=== PATIENT | male | born 1980 | race Caucasian/White ===

== ENCOUNTER → 2018-10-02 | Day surgery (SDC) | payer MEDICARE ==
[2018-09-28 12:00] LABS: BASOPHILS % 0.6 % (0.0-1.0); EOSINOPHILS % 0.8 % (0.0-6.0); HEMATOCRIT 47.1 % (38.2-49.6); HEMOGLOBIN 15.8 g/dL (14.0-18.0); LYMPHOCYTES # (AUTO) 1.3 (1.0-3.2); LYMPHOCYTES % 25.3 % (18.0-39.1); MEAN CORPUSCULAR HEMOGLOBIN 30.4 pg (28-32); MEAN CORPUSCULAR HGB CONC 33.5 g/dL (31-35); MEAN CORPUSCULAR VOLUME 90.6 fL (81-99); MONOCYTES # (AUTO) 0.5 (0.2-0.8); MONOCYTES % 9.7 % (4.4-11.3); NEUTROPHILS # (AUTO) 3.1 (2.1-6.9); NEUTROPHILS % 63.4 % (38.7-80.0); PLATELET COUNT 180 x10e3/uL (140-360); RED CELL DISTRIBUTION WIDTH 13.2 % (11.7-14.4)
[2018-09-28 12:21] LABS: ALANINE AMINOTRANSFERASE 28 IU/L (0-55); ALBUMIN 3.6 g/dL (3.5-5.0); ALBUMIN/GLOBULIN RATIO 1.3 (0.8-2.0); ALKALINE PHOSPHATASE 50 IU/L (40-150); ANION GAP 10.9 mmol/L (8-16); BLOOD UREA NITROGEN 7 mg/dL (7-26); BUN/CREATININE RATIO 8 (6-25); CALCIUM 9.2 mg/dL (8.4-10.2); CARBON DIOXIDE 27 mmol/L (22-29); CHLORIDE 105 mmol/L (98-107); CREATININE, SERUM 0.91 mg/dL (0.72-1.25); EST GLOMERULAR FILTRATION RATE > 60 ML/MIN (60-); GLUCOSE 92 mg/dL (74-118); POTASSIUM 3.9 mmol/L (3.5-5.1); SODIUM 139 mmol/L (136-145)
[~2018-10-02] MED LIST: ACETAMINOPHEN 1000 MG/100 ML IV ONE; BUPIVACAINE HCL 0.5% INJ 30 ML VIAL INJ ONE; CEFAZOLIN SOD 2 GM/D5W 50ML 50 ML IV ONE; DESFLURANE 240 ML BTL INH ONE; DIPHENHYDRAMINE HCL INJ 50 MG/ML VIAL ONE; FENTANYL CITRATE/PF 100MCG/2 ML INJ ONE; GLYCOPYRROLATE INJ 1MG/ 5 ML SYR ONE; HYDROCODONE/APAP 10MG-325MG TAB ONE; HYDROXYZINE HCL25 MG PO; KETOROLAC TROMETHAMINE 30 MG/ML VIAL ONE; LIDOCAINE HCL 2% JELLY 5 ML TUBE ONE; LIDOCAINE HCL 2% LOCAL INJ 5 ML SDV VIAL INJ ONE; METOCLOPRAMIDE HCL 10 MG/2ML VIAL ONE; MIDAZOLAM HCL 2 MG/2 ML VIAL ONE; NEOSTIGMINE 5 MG/5ML SYR ONE; ONDANSETRON HCL INJ 2MG/ML 2ML 2 MG/ML VIAL ONE; PROMETHAZINE HCL (IM) 25 MG/ML VIAL ONE; PROPOFOL IV EMULSION 10 MG/ML 20 ML VIAL ONE; ROCURONIUM BROMIDE 10 MG/ML 5ML VIAL ONE; SUGAMMADEX SODIUM 200 MG/2 ML VIAL IV ONE; linzess PO
[2018-10-02 10:30] VITALS: BP 121/89
--- NOTE | 2018-10-02 11:16 | Operative Report ---
DATE OF PROCEDURE: 10/02/2018 SURGEON: Dax Baltazar MD PREOPERATIVE DIAGNOSES: Chronic cholecystitis, cholelithiasis. POSTOPERATIVE DIAGNOSES: Chronic cholecystitis, cholelithiasis. PROCEDURE: Diagnostic laparoscopy, laparoscopic cholecystectomy. CRTT: None. ANESTHESIA: General endotracheal. INDICATIONS AND FINDINGS: The patient is a 37-year-old male, who presented with complaints of frequent episodes of epigastric abdominal pain. Workup revealed gallstones. At surgery, the patient was found to have a gallbladder that was mildly distended. There were adhesions involving the omentum over the neck and fundus of the gallbladder. Cystic duct was about 3 mm in diameter. Common bile duct was about 6 mm in diameter. Liver, stomach, and lower abdomen all appeared normal. TECHNIQUE: After adequate general endotracheal anesthesia with the patient in supine position, the abdomen was prepped and draped in a sterile fashion with ChloraPrep solution. Skin in the umbilicus was infiltrated with 0.5% Marcaine. Incision was made in the umbilicus, abdominal wall was elevated and Veress needle was introduced, pneumoperitoneum was then created. A 10 mm trocar and cannula was then passed through the umbilical wound. Laparoscopic camera was introduced. Initial laparoscopy revealed liver, stomach, and lower abdomen appeared normal, the gallbladder was mildly distended. A 10 mm trocar and cannula was placed in the epigastrium and two 5 mm trocars and cannulas were placed in right upper quadrant, these were placed under direct vision. Fundus of the gallbladder was grasped, retracted superiorly. There were adhesions over the neck and fundus of the gallbladder involving the omentum, these were lysed staying close to the gallbladder. Neck of the gallbladder was grasped, retracted laterally. Peritoneum over the neck of the gallbladder was incised. The gallbladder cystic duct junction was dissected free. Cystic artery was also dissected free. The neck of the gallbladder completely dissected free. Cystic artery was divided between hemoclips close to the gallbladder. Cystic duct was also divided between hemoclips with three clips being left on the common bile duct side. The gallbladder was dissected free from the liver using scissors and electrocautery. Once it was entirely free, it was placed into an Endopouch and brought out through the epigastric cannula containing multiple stones. Gallbladder bed was inspected for hemostasis, which was seen to be adequate. It was irrigated with saline, all fluid aspirated, inspected once again for hemostasis which was seen to be adequate. Instruments and cannulas were removed. Pneumoperitoneum was evacuated. Wounds were then closed. Fascia in the umbilical and epigastric wound closed with 0 Vicryl. Skin to all wounds closed with kamila. Sterile dressings applied to each wound. The patient tolerated the procedure well. Estimated blood loss was 10 mL. There were no complications. All counts were correct. The patient was taken to the recovery room in satisfactory condition. MD ADINA DuboisG/MODL /[id number] cc: Fahad Lopes MD
== END | disposition home or self-care (01) ==
LOC: OR 05:00
PROVIDERS: ATTEND Surgery
DX: K80.10 Calculus of gallbladder with chronic cholecystitis without obstruction (principal); K82.8 Other specified diseases of gallbladder; K21.9 Gastro-esophageal reflux disease without esophagitis; K58.9 Irritable bowel syndrome, unspecified; M26.609 Unspecified temporomandibular joint disorder, unspecified side; M53.80 Other specified dorsopathies, site unspecified; J45.909 Unspecified asthma, uncomplicated; F42.9 Obsessive-compulsive disorder, unspecified; F25.9 Schizoaffective disorder, unspecified; Z88.6 Allergy status to analgesic agent; Z88.8 Allergy status to other drugs, medicaments and biological substances; Z01.812 Encounter for preprocedural laboratory examination; Z68.30 Body mass index [BMI] 30.0-30.9, adult
CPT/HCPCS: 36415; 47562; 80053; 85025; 88304; J0131; J0690; J1200; J1885; J2001 ×2; J2250; J2405; J2550; J2704; J2765; J3490

== ENCOUNTER 2019-01-21 08:10 | Emergency (ER) | payer MEDICARE ==
[~2019-01-21] VITALS: Ht 172.7 cm; Wt 88.9 kg
[~2019-01-21 08:10] MED LIST changes: -ACETAMINOPHEN 1000 MG/100 ML IV ONE; -BUPIVACAINE HCL 0.5% INJ 30 ML VIAL INJ ONE; -CEFAZOLIN SOD 2 GM/D5W 50ML 50 ML IV ONE; -DESFLURANE 240 ML BTL INH ONE; -DIPHENHYDRAMINE HCL INJ 50 MG/ML VIAL ONE; -FENTANYL CITRATE/PF 100MCG/2 ML INJ ONE; -GLYCOPYRROLATE INJ 1MG/ 5 ML SYR ONE; -HYDROCODONE/APAP 10MG-325MG TAB ONE; -KETOROLAC TROMETHAMINE 30 MG/ML VIAL ONE; -LIDOCAINE HCL 2% JELLY 5 ML TUBE ONE; -LIDOCAINE HCL 2% LOCAL INJ 5 ML SDV VIAL INJ ONE; -METOCLOPRAMIDE HCL 10 MG/2ML VIAL ONE; -MIDAZOLAM HCL 2 MG/2 ML VIAL ONE; -NEOSTIGMINE 5 MG/5ML SYR ONE; -ONDANSETRON HCL INJ 2MG/ML 2ML 2 MG/ML VIAL ONE; -PROMETHAZINE HCL (IM) 25 MG/ML VIAL ONE; -PROPOFOL IV EMULSION 10 MG/ML 20 ML VIAL ONE; -ROCURONIUM BROMIDE 10 MG/ML 5ML VIAL ONE; -SUGAMMADEX SODIUM 200 MG/2 ML VIAL IV ONE
--- OUTSIDE RECORDS SUMMARY | 2019-01-21 08:13 | XMS REPORT ---
Author Author Jamie Flowers Organization [employer] Address Unknown Phone Unavailable Care Team Providers Care Powerhouse Mechanic Supervisor Name Role Phone Jamie Flowers CP Unavailable Allergies No Known Allergies Problems Problem Type Condition Code Onset Dates Condition Status Problem Back pain M54.9 Active Problem Rash R21 Active Problem Neck pain M54.2 Active Problem Joint pain M25.50 Active Medications No Known Medications Results No Known Results Summary Purpose [employer] Submission
--- OUTSIDE RECORDS SUMMARY | 2019-01-21 08:13 | XMS REPORT ---
Author Author Kathi Nina Organization [employer] Address Unknown Phone Unavailable Care Team Providers Care Nursing Instructor Name Role Phone Kathi Nina Unavailable Allergies, Adverse Reactions, Alerts Substance Reaction Event Type Cortisone Info Not Available Drug Allergy Morphine Sulfate Info Not Available Drug Allergy Dilaudid Info Not Available Drug Allergy Problems Problem Type Condition Code Onset Dates Condition Status Assessment Back pain M54.9 Active Problem Back pain M54.9 Active Problem Rash R21 Active Problem Neck pain M54.2 Active Assessment Joint pain M25.50 Active Assessment Neck pain M54.2 Active Problem Joint pain M25.50 Active Medications Medication Code System Code Instructions Start Date End Date Status Dosage Diclofenac Potassium [facility] 85846179809 50 MG Orally Twice a day Mar 27, 2018 Apr 26, 2018 Active 1 tablet HydrOXYzine HCl ND 12417062707 25 MG Orally every 8 hrs Active 1 tablet as needed Linzess ND 26002089451 145 MCG Orally Once a day Active 1 capsule Vital Signs Date/Time: Apr 30, 2018 BMI 28 Index Weight 193 lbs Height 69 in Temperature 96.9 F Cardiac Monitoring Heart Rate 72 /min Blood Pressure Diastolic 72 mm Hg Blood Pressure Systolic 110 mm Hg Results No Known Results Summary Purpose [employer] Submission
--- OUTSIDE RECORDS SUMMARY | 2019-01-21 08:13 | XMS REPORT ---
Author Author [facility] Address Unknown Phone Unavailable Care Team Providers Care Diploma Maker Name Role Phone ROSMERYLOUISE Unavailable Unavailable Daly ETIENNE Unavailable Unavailable Payers Payer Name Policy Type Policy Number Effective Date Expiration Date Problems This patient has no known problems. Allergies, Adverse Reactions, Alerts Allergy Name Allergy Type Status Severity Reaction(s) Onset Date Inactive Date Treating Clinician Comments morphine DA Active U 2018-12-23 00:00:00 codeine DA Active U 2018-12-23 00:00:00 hydromorphone DA Active U 2018-12-23 00:00:00 STEROIDS DA Active SV 2017-09-03 00:00:00 morphine DA Active U 2016-08-11 00:00:00 hydromorphone DA Active U 2016-08-11 00:00:00 morphine DA Active MO 2015-06-07 00:00:00 hydromorphone DA Active LA 2015-06-07 00:00:00 Medications This patient has no known medications. Results Test Description Test Time Test Comments Text Results Atomic Results Result Comments STREPTOCOCCUS PCR SCREEN 2019-01-20 11:29:00 STREPTOCOCCUS DYSGALACTIAE (test code=STREPGC) NEGATIVE FOR G/C NEGATIVE STREPA MOLECULAR (test code=STREPAMOL) NEGATIVE FOR GRP A NEGATIVE - XR CHEST 2 [id number] 23:10:00 FAX: Jacquelin Gallardo NP [place]: St: PRE Name: JAIDEN CARNES [facility] : [birth year] Age/S: 38/M [address] [facility] Unit #: [id number] Loc: [place] [address] Phys: Jacquelin Gallardo NP Acct: [id number] Dis Date: Status: PRE ER PHONE #: [phone] Exam Date: 01/19/2019 230 FAX #: [phone] Reason: cough, sob EXAMS: CPT CODE: [id number] XR CHEST 2 V 94832 HISTORY: cough, shortness of breath TECHNIQUE: PA and lateral chest x-ray COMPARISON: None FINDINGS: No airspace consolidation or pleural effusion. Normal heart size. Mediastinal silhouette is unremarkable. Visua lized osseous structures are grossly intact. IMPRESSION: No radiographic evidence of acute cardiopulmonary process. at 2310 Reported and signed by: Renay Palmer D.O. CC: Jacquelin Gallardo NP Technologist: RT NARDA(Jorge) Trnscrd Date/Time/By: 01/19/2019 ( 2310) : By: [email or web address] Orig Print D/T: S: 01/19/2019 (0093) PAGE 1 Signed Report BASIC METABOLIC [id number] 04:36:00* Test Item Value Reference Range Comments SODIUM (test code=NA) 142 mmol/L 136-145 POTASSIUM (test code=K) 4.0 mmol/L 3.5-5.1 CHLORIDE (test code=CL) 108.0 mmol/L 98-107 CARBON DIOXIDE (test code=CO2) 30.0 mmol/L 21-32 ANION GAP (test code=GAP) 8.0 10-20 GLUCOSE (test code=GLU) 134 mg/dL 74-106 BLOOD UREA NITROGEN (test code=BUN) 10 mg/dL 7-18 GLOMERULAR FILTRATION RATE (test code=GFR) > 60 mL/min >=60 Estimated GFR by using Modified MDRD formula.Chronic kidney disease is defined as either kidney damageor GFR <60 mL/min/1.73 m2 for >3 months. CREATININE (test code=CREAT) 1.00 mg/dL 0.7-1.3 BUN/CREATININE RATIO (test code=BUN/CREA) 10.0 10-20 CALCIUM (test code=CA) 9.2 mg/dL 8.5-10.1 HEPATIC FUNCTION [id number] 04:36:00* Test Item Value Reference Range Comments TOTAL PROTEIN (test code=PROT) 7.4 gram/dL 6.4-8.2 ALBUMIN (test code=ALB) 3.8 g/dL 3.4-5.0 GLOBULIN (test code=GLOB) 3.6 gram/dL 2.7-4.2 ALBUMIN/GLOBULIN RATIO (test code=A/G) 1.1 0.75-1.50 BILIRUBIN TOTAL (test code=BILT) 0.30 mg/dL 0.0-1.0 BILIRUBIN DIRECT (test code=BILD) 0.09 mg/dL 0.0-0.20 SGOT/AST (test code=AST) 10 IUnit/L 15-37 SGPT/ALT (test code=ALT) 22 IUnit/L 12-78 ALKALINE PHOSPHATASE TOTAL (test code=ALKP) 58 IUnit/L 45-117 Note change in reference range due to change in reagent. [id number] 04:36:00* Test Item Value Reference Range Comments ALCOHOL (test code=ALC) < 3 mg/dL 0.0-3.0 INTERPRETIVE DATA NOTE: POSITIVE SCREENING RESULTS SHOULD BE CONSIDERED PRESUMPTIVE.WHEN COLLECTED FOR MEDICAL PURPOSES ONLY. SPECIMEN WILL NOTBE COLLECTED BY CHAIN OF CUSTODY.IF A CONFIRMATION OF POSITIVE RESULTS IS DESIRED, ACONFIRMATION TEST MUST BE REQUESTED BY THE [facility]. [id number] 04:36:00* Test Item Value Reference Range Comments TROPONIN-I (test code=TROPI) <0.015 ng/mL 0-0.045 [id number] 04:36:00* Test Item Value Reference Range Comments ACETAMINOPHEN (test code=ACET) < 10 mcg/mL 10-30 A RANGE OF 10-30 mcg/mL IS A THERAPEUTIC RANGE. TOXIC CONCENTRATIONS: >150 mcg/mL AT 4 HOURS AFTER INGESTION >=50 mcg/mL AT 12 HOURS AFTER INGESTION [id number] 04:36:00* Test Item Value Reference Range Comments SALICYLATE (test code=NADIYA) < 1.7 mg/dL 2.8-20.0 BASIC METABOLIC [id number] 04:24:00* Test Item Value Reference Range Comments SODIUM (test code=NA) 142 mmol/L 136-145 POTASSIUM (test code=K) 4.0 mmol/L 3.5-5.1 CHLORIDE (test code=CL) 108.0 mmol/L 98-107 CARBON DIOXIDE (test code=CO2) mmol/L 21-32 ANION GAP (test code=GAP) 10-20 GLUCOSE (test code=GLU) mg/dL 74-106 BLOOD UREA NITROGEN (test code=BUN) mg/dL 7-18 GLOMERULAR FILTRATION RATE (test code=GFR) mL/min >=60 CREATININE (test code=CREAT) mg/dL 0.7-1.3 BUN/CREATININE RATIO (test code=BUN/CREA) 10-20 CALCIUM (test code=CA) mg/dL 8.5-10.1 HEPATIC FUNCTION [id number] 04:24:00* Test Item Value Reference Range Comments TOTAL PROTEIN (test code=PROT) gram/dL 6.4-8.2 ALBUMIN (test code=ALB) g/dL 3.4-5.0 GLOBULIN (test code=GLOB) gram/dL 2.7-4.2 ALBUMIN/GLOBULIN RATIO (test code=A/G) 0.75-1.50 BILIRUBIN TOTAL (test code=BILT) mg/dL 0.0-1.0 BILIRUBIN DIRECT (test code=BILD) mg/dL 0.0-0.20 SGOT/AST (test code=AST) IUnit/L 15-37 SGPT/ALT (test code=ALT) IUnit/L 12-78 ALKALINE PHOSPHATASE TOTAL (test code=ALKP) IUnit/L 45-117 [id number] 04:24:00* Test Item Value Reference Range Comments ALCOHOL (test code=ALC) mg/dL 0-3 URINALYSIS [id number] 04:14:00* Test Item Value Reference Range Comments UA COLOR (test code=COLU) YELLOW YELLOW UA APPEARANCE (test code=APPU) CLEAR CLEAR UA GLUCOSE DIPSTICK (test code=DGLUU) NEGATIVE mg/dL NEGATIVE UA BILIRUBIN DIPSTICK (test code=BILU) NEGATIVE mg/dL NEGATIVE UA KETONE DIPSTICK (test code=KETU) NEGATIVE mg/dL NEGATIVE UA SPECIFIC GRAVITY (test code=SGU) 1.027 1.001-1.035 UA BLOOD DIPSTICK (test code=ALYSSA) Negative mg/dL NEGATIVE UA PH DIPSTICK (test code=RIC) 7.0 5.0-8.0 UA PROTEIN DIPSTICK (test code=PROU) NEGATIVE mg/dL NEGATIVE UA UROBILINIOGEN DIPSTICK (test code=URO) 2.0 (1+) mg/dL NEGATIVE UA NITRITE DIPSTICK (test code=AKIRA) NEGATIVE NEGATIVE UA LEUKOCYTE ESTERASE W REFLEX (test code=LEUUR) NEGATIVE Sara/uL NEGATIVE UA WBC (test code=WBCU) 0-5 per HPF 0-5 UA RBC (test code=RBCU) 3-5 #/HPF 0-5 UA EPITHELIAL CELLS (test code=EPIU) FEW per HPF FEW UA BACTERIA (test code=BACU) FEW #/HPF NONE UA HYALINE CAST (test code=HYALU) 3-5 #/LPF 0-5 UA MUCUS (test code=MUCU) MODERATE #/LPF FEW Urine Source? Clean CatchDRUGS OF ABUSE SCREEN [id number] 04:14:00* Test Item Value Reference Range Comments URN COCAINE (test code=COCAURN) NEGATIVE <300 ng/mL URN CANNABINOIDS (test code=CANNABURN) NEGATIVE <50 ng/mL URN AMPHETAMINE (test code=AMPHETURN) NEGATIVE <1000 ng/mL URN BARBITURATE (test code=BARBITURN) NEGATIVE <200 ng/mL URN BENZODIAZEPINE (test code=BENZOURN) NEGATIVE <200 ng/mL URN OPIATES (test code=OPIATURN) NEGATIVE <300 ng/mL URN PHENCYCLIDINE (PCP) (test code=PHENCURN) NEGATIVE <25 ng/mL URN METHADONE (test code=METHAURN) NEGATIVE <300 ng/mL Urine Source? Clean CatchCBC W/O [id number] 04:08:00* Test Item Value Reference Range Comments WHITE BLOOD CELL (test code=WBC) 9.1 K/mm3 4.5-12.5 RED BLOOD CELL (test code=RBC) 4.79 mill/mm3 4.0-5.8 HEMOGLOBIN (test code=HGB) 15.3 gram/dL 13.0-17.5 HEMATOCRIT (test code=HCT) 42.7 % 42.0-52.0 MEAN CELL VOLUME (test code=MCV) 89.1 fL 80-98 MEAN CELL HGB (test code=MCH) 31.9 picogram 27.0-33.0 MEAN CELL HGB CONCETRATION (test code=MCHC) 35.8 gram/dL 33.0-36.0 RED CELL DISTRIBUTION WIDTH (test code=RDW) 13.4 % 11.6-16.2 PLATELET COUNT (test code=PLT) 203 K/mm3 150-450 MEAN PLATELET VOLUME (test code=MPV) 11.0 fL 6.7-11.0 CBC W/O [id number] 04:06:00* Test Item Value Reference Range Comments WHITE BLOOD CELL (test code=WBC) K/mm3 4.5-12.5 RED BLOOD CELL (test code=RBC) mill/mm3 4.0-5.8 HEMOGLOBIN (test code=HGB) 15.3 gram/dL 13.0-17.5 HEMATOCRIT (test code=HCT) 42.7 % 42.0-52.0 MEAN CELL VOLUME (test code=MCV) fL 80-98 MEAN CELL HGB (test code=MCH) picogram 27.0-33.0 MEAN CELL HGB CONCETRATION (test code=MCHC) gram/dL 33.0-36.0 RED CELL DISTRIBUTION WIDTH (test code=RDW) % 11.6-16.2 PLATELET COUNT (test code=PLT) K/mm3 150-450 MEAN PLATELET VOLUME (test code=MPV) fL 6.7-11.0 URINALYSIS [id number] 04:00:00* Test Item Value Reference Range Comments UA COLOR (test code=COLU) YELLOW YELLOW UA APPEARANCE (test code=APPU) CLEAR CLEAR UA GLUCOSE DIPSTICK (test code=DGLUU) NEGATIVE mg/dL NEGATIVE UA BILIRUBIN DIPSTICK (test code=BILU) NEGATIVE mg/dL NEGATIVE UA KETONE DIPSTICK (test code=KETU) NEGATIVE mg/dL NEGATIVE UA SPECIFIC GRAVITY (test code=SGU) 1.027 1.001-1.035 UA BLOOD DIPSTICK (test code=ALYSSA) Negative mg/dL NEGATIVE UA PH DIPSTICK (test code=RIC) 7.0 5.0-8.0 UA PROTEIN DIPSTICK (test code=PROU) NEGATIVE mg/dL NEGATIVE UA UROBILINIOGEN DIPSTICK (test code=URO) 2.0 (1+) mg/dL NEGATIVE UA NITRITE DIPSTICK (test code=AKIRA) NEGATIVE NEGATIVE UA LEUKOCYTE ESTERASE W REFLEX (test code=LEUUR) NEGATIVE Sara/uL NEGATIVE UA WBC (test code=WBCU) per HPF 0-5 UA RBC (test code=RBCU) per HPF 0-5 UA EPITHELIAL CELLS (test code=EPIU) per HPF Few UA BACTERIA (test code=BACU) per HPF NONE Urine Source? Clean CatchDRUGS OF ABUSE SCREEN [id number] 04:00:00* Test Item Value Reference Range Comments URN COCAINE (test code=COCAURN) <300 ng/mL URN CANNABINOIDS (test code=CANNABURN) <50 ng/mL URN AMPHETAMINE (test code=AMPHETURN) <1000 ng/mL URN BARBITURATE (test code=BARBITURN) <200 ng/mL URN BENZODIAZEPINE (test code=BENZOURN) <200 ng/mL URN OPIATES (test code=OPIATURN) <300 ng/mL URN PHENCYCLIDINE (PCP) (test code=PHENCURN) <25 ng/mL URN METHADONE (test code=METHAURN) <300 ng/mL Urine Source? Clean CatchURINALYSIS [id number] 04:00:00* Test Item Value Reference Range Comments UA COLOR (test code=COLU) YELLOW YELLOW UA APPEARANCE (test code=APPU) CLEAR CLEAR UA GLUCOSE DIPSTICK (test code=DGLUU) NEGATIVE mg/dL NEGATIVE UA BILIRUBIN DIPSTICK (test code=BILU) NEGATIVE mg/dL NEGATIVE UA KETONE DIPSTICK (test code=KETU) NEGATIVE mg/dL NEGATIVE UA SPECIFIC GRAVITY (test code=SGU) 1.027 1.001-1.035 UA BLOOD DIPSTICK (test code=ALYSSA) Negative mg/dL NEGATIVE UA PH DIPSTICK (test code=RIC) 7.0 5.0-8.0 UA PROTEIN DIPSTICK (test code=PROU) NEGATIVE mg/dL NEGATIVE UA UROBILINIOGEN DIPSTICK (test code=URO) 2.0 (1+) mg/dL NEGATIVE UA NITRITE DIPSTICK (test code=AKIAR) NEGATIVE NEGATIVE UA LEUKOCYTE ESTERASE W REFLEX (test code=LEUUR) NEGATIVE Sara/uL NEGATIVE UA WBC (test code=WBCU) 0-5 per HPF 0-5 UA RBC (test code=RBCU) 3-5 #/HPF 0-5 UA EPITHELIAL CELLS (test code=EPIU) FEW per HPF FEW UA BACTERIA (test code=BACU) FEW #/HPF NONE UA HYALINE CAST (test code=HYALU) 3-5 #/LPF 0-5 UA MUCUS (test code=MUCU) MODERATE #/LPF FEW Urine Source? Clean CatchDRUGS OF ABUSE SCREEN [id number] 04:00:00* Test Item Value Reference Range Comments URN COCAINE (test code=COCAURN) <300 ng/mL URN CANNABINOIDS (test code=CANNABURN) <50 ng/mL URN AMPHETAMINE (test code=AMPHETURN) <1000 ng/mL URN BARBITURATE (test code=BARBITURN) <200 ng/mL URN BENZODIAZEPINE (test code=BENZOURN) <200 ng/mL URN OPIATES (test code=OPIATURN) <300 ng/mL URN PHENCYCLIDINE (PCP) (test code=PHENCURN) <25 ng/mL URN METHADONE (test code=METHAURN) <300 ng/mL Urine Source? Clean Catch- CT HEAD/BRAIN W/O [id number] 03:44:00 Name: JAIDEN PERLA [facility] : 1980 Age/S: 38 / M [address] Unit #: [id number] Loc: [place] [address] Phys: Venkatesh Ewing MD Acct: [id number] [place] s Date: Status: REG ER PHONE #: Exam Date: 01/12/2019 0339 FAX #: Reason: confusion EXAMS: CPT CODE: [id number] CT HEAD/BRAIN W/O CONT 50024 EXAM: - CT HEAD/BRAIN W/O CONT HISTORY: Confusion. TECHNIQUE: Axial tomograms through the brain were obtained without intravenous contrast. This exam was performed according to our departmental dose-optimization progra m, which includes automated exposure control, adjustment of the mA and/or kV according to patient size and/or use of iterative reconstruction techni que. COMPARISON: None available time of interpretation. FINDINGS: There is no intracranial hemorrhage, mass, or mass e ffect. The ventricular system and sulci are age-appropriate. There is no e vidence of acute infarction. The osseous structures and orbi ts, show no significant abnormalities. The visualized sinuses are relativ claudia clear. The soft tissues are unremarkable. IMPRESSION: No acute intracranial abnormality with no evidence of intracr anial hemorrhage. at 0344 Reported and signed by: Edil Tripathi MD CC: Yakov Ewing MD Technologist:MYRNA BERNARD, RT; Wyatt Keating CTDI: DLP: T rnscb Date/Time: 01/12/2019 (034) [email or web address] Orig Print D /T: S: 01/12/2019 (0343) PAGE 1 Signed Report - XR HAND 3 + V [id number] 14:38:00 FAX: Donn Valero DO [place]: B St: REG FAX: Javed Chan NP [phone] Name: JAIDEN PERLA JR [facility] : 1980 Age/S: 38/M [address] Unit #: [id number] Loc: [place] [address] Phys: Javed Chan CLOTH STRETCHER Acct: [id number] Dis Date: Status: REG ER PHONE #: [phone] Exam Date: 12/23/2018 1430 FAX #: [phone] Reason: HAND PAIN EXAMS: CPT CODE: [id number] XR HAND 3 + [place] [address] CLINICAL HISTORY: HAND PAIN TECHNIQUE: AP, oblique, and lateral views of the right hand COMPARISON: None FINDINGS: No acute fracture or dislocation. Bony trabecular pat tern is unremarkable. No cortical destruction or periosteal reaction. Join t spaces are preserved. Regional soft tissues are unremarkable. IMPRESSION: 1. Negative examination of the right hand. at 1438 Reported and signed by: Renay Palmer D.O. CC: Donn Valero DO; Javed Chan NP Technologist: KARLA HARRIS RT(R) Trnscrd Date/Time/By: 04/2018 (1438) : By: [email or web address] Orig Print D/T: S: 12/23/2018 (0297) PAGE 1 Signed Report - CT ABD PELVIS [id number] 00:43:00 Name: JAIDEN PERLA JR [facility] : 1980 Age/S: 37 / M [address] Unit #: [id number] Loc: [place] [address] Phys: Stacey Kennedy CLOTH STRETCHER Acct: [id number] Dis Date: Status: REG ER PHONE #: [phone] Exam Date: 10/16/2018 0022 FAX #: [phone] Reason: CODE SEPSIS EXAMS: CPT CODE: [id number] CT ABD PELVIS W/CONT 68492 EXAM: - CT ABD PELVIS W/CONT HISTORY: Abdominal pain. Vomiting. TECHNIQUE: Axial tomograms through the abdomen and pelvis were obtained after intravenous contrast. Coronal and sagittal reformatted images are provided. This exam was performed according to our departmental dose-optimization program, which includes automated exposure control, adjustment of the mA and/or kV according to patient size and/or use of iterative reconstruction technique. COMPARISON: July 10, 2018. FINDINGS: The visualized lung bases are clear. Status post cholec ystectomy. The liver, spleen, pancreas, adrenal glands and kidneys demonstrate no significant abnormalities. The appendix has a normal appearance. The bowel is unremarkable. There is no adeno cassandra or free fluid. There is no acute osseous abnormality. There is no significant change compared to prior exam. I MPRESSION: No significant abnormalities demonstrated. at 0043 Reported and signed by: Edil Tripathi MD CC: Stacey Kennedy NP Technologist:RT RODRIGUEZ CTDI: DLP: Trnscb Date/Time: 10/16/2018 (0043) [email or web address] Orig Print D/T: S: 10/16/2018 (0046) PAGE 1 Signed Report POC LACTIC [id number] 00:42:00* Test Item Value Reference Range Comments POC LACTIC ACID (test code=POCLAC) 1.06 MMOL/L 0.4-2.2 URINALYSIS [id number] 00:05:00* Test Item Value Reference Range Comments UA COLOR (test code=COLU) Light-Yellow YELLOW UA APPEARANCE (test code=APPU) CLEAR CLEAR UA GLUCOSE DIPSTICK (test code=DGLUU) NEGATIVE mg/dL NEGATIVE UA BILIRUBIN DIPSTICK (test code=BILU) NEGATIVE mg/dL NEGATIVE UA KETONE DIPSTICK (test code=KETU) NEGATIVE mg/dL NEGATIVE UA SPECIFIC GRAVITY (test code=SGU) 1.016 1.001-1.035 UA BLOOD DIPSTICK (test code=ALYSSA) Negative mg/dL NEGATIVE UA PH DIPSTICK (test code=RIC) 8.0 5.0-8.0 UA PROTEIN DIPSTICK (test code=PROU) NEGATIVE mg/dL NEGATIVE UA UROBILINIOGEN DIPSTICK (test code=URO) Normal mg/dL NEGATIVE UA NITRITE DIPSTICK (test code=AKIRA) NEGATIVE NEGATIVE UA LEUKOCYTE ESTERASE W REFLEX (test code=LEUUR) NEGATIVE Sara/uL NEGATIVE UA WBC (test code=WBCU) 0-5 per HPF 0-5 UA RBC (test code=RBCU) 0-2 #/HPF 0-5 UA EPITHELIAL CELLS (test code=EPIU) FEW per HPF FEW UA BACTERIA (test code=BACU) NONE SEEN #/HPF NONE UA MUCUS (test code=MUCU) FEW #/LPF FEW Urine Source? Clean CatchURINALYSIS [id number] 00:04:00* Test Item Value Reference Range Comments UA COLOR (test code=COLU) Light-Yellow YELLOW UA APPEARANCE (test code=APPU) CLEAR CLEAR UA GLUCOSE DIPSTICK (test code=DGLUU) NEGATIVE mg/dL NEGATIVE UA BILIRUBIN DIPSTICK (test code=BILU) NEGATIVE mg/dL NEGATIVE UA KETONE DIPSTICK (test code=KETU) NEGATIVE mg/dL NEGATIVE UA SPECIFIC GRAVITY (test code=SGU) 1.016 1.001-1.035 UA BLOOD DIPSTICK (test code=ALYSSA) Negative mg/dL NEGATIVE UA PH DIPSTICK (test code=RIC) 8.0 5.0-8.0 UA PROTEIN DIPSTICK (test code=PROU) NEGATIVE mg/dL NEGATIVE UA UROBILINIOGEN DIPSTICK (test code=URO) Normal mg/dL NEGATIVE UA NITRITE DIPSTICK (test code=AKIRA) NEGATIVE NEGATIVE UA LEUKOCYTE ESTERASE W REFLEX (test code=LEUUR) NEGATIVE Sara/uL NEGATIVE UA WBC (test code=WBCU) per HPF 0-5 UA RBC (test code=RBCU) per HPF 0-5 UA EPITHELIAL CELLS (test code=EPIU) per HPF Few UA BACTERIA (test code=BACU) per HPF NONE Urine Source? Clean CatchPROCALCITONIN (PCT)2018-10-15 21:58:00* Test Item Value Reference Range Comments PROCALCITONIN (PCT) (test code=PROCAL) < 0.05 ng/ml Concentration Interpretation (ng/mL) <0.51 Sepsis is not likely. Local bacterial infection is possible. (LOW RISK for progression to Sepsis) 0.51 - 2.00 Sepsis is possible, but other conditions are known to elevate PCT as well. (MODERATE RISK for progression to Sepsis) > 2.00 Sepsis is likely, unless other causes are known. (HIGH RISK for progression to Severe Sepsis or Septic Shock) 10.00 High likelihood of Severe Sepsis or Septic or higher Shock. *Increased PCT levels may not always be related to systemic bacterial infection.*Low PCT levels do not automatically exclude the presence of bacterial infection.*All results should be interpreted taking into account the patients history. LACTIC [id number] 21:36:00* Test Item Value Reference Range Comments LACTIC ACID (test code=LACT) 1.1 mmol/L 0.4-1.9 BASIC METABOLIC [id number] 21:18:00* Test Item Value Reference Range Comments SODIUM (test code=NA) 143 mmol/L 136-145 POTASSIUM (test code=K) 3.8 mmol/L 3.5-5.1 CHLORIDE (test code=CL) 110.0 mmol/L 98-107 CARBON DIOXIDE (test code=CO2) 29.0 mmol/L 21-32 ANION GAP (test code=GAP) 7.8 10-20 GLUCOSE (test code=GLU) 86 mg/dL 74-106 BLOOD UREA NITROGEN (test code=BUN) 7 mg/dL 7-18 GLOMERULAR FILTRATION RATE (test code=GFR) > 60 mL/min >=60 Estimated GFR by using Modified MDRD formula.Chronic kidney disease is defined as either kidney damageor GFR <60 mL/min/1.73 m2 for >3 months. CREATININE (test code=CREAT) 1.00 mg/dL 0.7-1.3 BUN/CREATININE RATIO (test code=BUN/CREA) 7.0 10-20 CALCIUM (test code=CA) 8.6 mg/dL 8.5-10.1 HEPATIC FUNCTION [id number] 21:18:00* Test Item Value Reference Range Comments TOTAL PROTEIN (test code=PROT) 6.2 gram/dL 6.4-8.2 ALBUMIN (test code=ALB) 3.3 g/dL 3.4-5.0 GLOBULIN (test code=GLOB) 2.9 gram/dL 2.7-4.2 ALBUMIN/GLOBULIN RATIO (test code=A/G) 1.1 0.75-1.50 BILIRUBIN TOTAL (test code=BILT) 0.30 mg/dL 0.0-1.0 BILIRUBIN DIRECT (test code=BILD) 0.12 mg/dL 0.0-0.20 SGOT/AST (test code=AST) 15 IUnit/L 15-37 SGPT/ALT (test code=ALT) 22 IUnit/L 12-78 ALKALINE PHOSPHATASE TOTAL (test code=ALKP) 60 IUnit/L 45-117 Note change in reference range due to change in reagent. [id number] 21:18:00* Test Item Value Reference Range Comments TROPONIN-I (test code=TROPI) <0.015 ng/mL 0-0.045 - XR CHEST 1 [id number] 21:03:00 FAX: Stacey Kennedy NP [place]: B St: PRE Name: JAIDEN CARNES [facility] : [birth year] Age/S: 37/M [address] [facility] Unit #: [id number] Loc: [place] [address] Phys: Stacey Kennedy NP Acct: [id number] Dis Date: Status: PRE ER PHONE #: [phone] Exam Date: 10/15/2018 2100 FAX #: [phone] Reason: CODE SEPSIS EXAMS: CPT CODE: [id number] XR CHEST 1 V [id number] REASON FOR EXAM: CODE SEPSIS EXAM ORDER DATE: 10/15/2018 8:13 PM Ordering Batsheva: Stacey Kennedy NP PROCEDURE: - XR CHEST 1 V COMPARI SON: FINDINGS: Portable AP frontal view of the chest obtained at 8:58 PM shows clear lungs without evidence of consolidation. There is no evidence of effusion. The heart size is within normal limits. Pulmona ry vasculatures are unremarkable. IMPRESSION: No active disease . at 3 Reported and signed by: Jaya Szymanski M.D. CC: Stacey Kennedy NP Technologist: CLAUDINE WHEELERZ Trnscrd Date/Time/By: 10/15/2018 (2102) : By: HiteshVTL Orig Print D/T: S: 10/15/2018 (2105) PAGE 1 Signed Report BASIC METABOLIC [id number] 20:56:00* Test Item Value Reference Range Comments SODIUM (test code=NA) 143 mmol/L 136-145 POTASSIUM (test code=K) 3.8 mmol/L 3.5-5.1 CHLORIDE (test code=CL) 110.0 mmol/L 98-107 CARBON DIOXIDE (test code=CO2) mmol/L 21-32 ANION GAP (test code=GAP) 10-20 GLUCOSE (test code=GLU) mg/dL 74-106 BLOOD UREA NITROGEN (test code=BUN) mg/dL 7-18 GLOMERULAR FILTRATION RATE (test code=GFR) mL/min >=60 CREATININE (test code=CREAT) mg/dL 0.7-1.3 BUN/CREATININE RATIO (test code=BUN/CREA) 10-20 CALCIUM (test code=CA) mg/dL 8.5-10.1 HEPATIC FUNCTION [id number] 20:56:00* Test Item Value Reference Range Comments TOTAL PROTEIN (test code=PROT) gram/dL 6.4-8.2 ALBUMIN (test code=ALB) g/dL 3.4-5.0 GLOBULIN (test code=GLOB) gram/dL 2.7-4.2 ALBUMIN/GLOBULIN RATIO (test code=A/G) 0.75-1.50 BILIRUBIN TOTAL (test code=BILT) mg/dL 0.0-1.0 BILIRUBIN DIRECT (test code=BILD) mg/dL 0.0-0.20 SGOT/AST (test code=AST) IUnit/L 15-37 SGPT/ALT (test code=ALT) IUnit/L 12-78 ALKALINE PHOSPHATASE TOTAL (test code=ALKP) IUnit/L 45-117 [id number] 20:56:00* Test Item Value Reference Range Comments TROPONIN-I (test code=TROPI) ng/mL 0-0.045 CBC W/AUTO [id number] 20:51:00* Test Item Value Reference Range Comments WHITE BLOOD CELL (test code=WBC) 6.2 K/mm3 4.5-12.5 RED BLOOD CELL (test code=RBC) 5.23 mill/mm3 4.0-5.8 HEMOGLOBIN (test code=HGB) 16.0 gram/dL 13.0-17.5 HEMATOCRIT (test code=HCT) 46.0 % 42.0-52.0 MEAN CELL VOLUME (test code=MCV) 88.0 fL 80-98 MEAN CELL HGB (test code=MCH) 30.6 picogram 27.0-33.0 MEAN CELL HGB CONCETRATION (test code=MCHC) 34.8 gram/dL 33.0-36.0 RED CELL DISTRIBUTION WIDTH (test code=RDW) 12.6 % 11.6-16.2 RED CELL DISTRIBUTION WIDTH SD (test code=RDW-SD) 40.6 fL 37.0-51.0 PLATELET COUNT (test code=PLT) 184 K/mm3 150-450 MEAN PLATELET VOLUME (test code=MPV) 10.1 fL 6.7-11.0 NEUTROPHIL % (test code=NT%) 59.1 % 39.0-69.0 IMMATURE GRANULOCYTE % (test code=IG%) 0.2 % 0.0-5.0 LYMPHOCYTE % (test code=LY%) 29.9 % 25.0-55.0 MONOCYTE % (test code=MO%) 9.6 % 0.0-10.0 EOSINOPHIL % (test code=EO%) 0.6 % 0.0-5.0 BASOPHIL % (test code=BA%) 0.6 % 0.0-1.0 NUCLEATED RBC % (test code=NRBC%) 0.0 % 0-0 NEUTROPHIL # (test code=NT#) 3.67 K/mm3 1.8-7.7 IMMATURE GRANULOCYTE # (test code=IG#) 0.01 x10 3/uL 0-0.03 LYMPHOCYTE # (test code=LY#) 1.86 K/mm3 1.0-5.0 MONOCYTE # (test code=MO#) 0.60 K/mm3 0-0.8 EOSINOPHIL # (test code=EO#) 0.04 K/mm3 0.0-0.5 BASOPHIL # (test code=BA#) 0.04 K/mm3 0.0-0.2 NUCLEATED RBC # (test code=NRBC#) 0.00 K/mm3 0.0-0.1 MANUAL DIFF REQUIRED (test code=MDIFF) NO CBC W/AUTO [id number] 20:47:00* Test Item Value Reference Range Comments WHITE BLOOD CELL (test code=WBC) K/mm3 4.5-12.5 RED BLOOD CELL (test code=RBC) mill/mm3 4.0-5.8 HEMOGLOBIN (test code=HGB) 16.0 gram/dL 13.0-17.5 HEMATOCRIT (test code=HCT) 46.0 % 42.0-52.0 MEAN CELL VOLUME (test code=MCV) fL 80-98 MEAN CELL HGB (test code=MCH) picogram 27.0-33.0 MEAN CELL HGB CONCETRATION (test code=MCHC) gram/dL 33.0-36.0 RED CELL DISTRIBUTION WIDTH (test code=RDW) % 11.6-16.2 RED CELL DISTRIBUTION WIDTH SD (test code=RDW-SD) fL 37.0-51.0 PLATELET COUNT (test code=PLT) K/mm3 150-450 MEAN PLATELET VOLUME (test code=MPV) fL 6.7-11.0 NEUTROPHIL % (test code=NT%) % 39.0-69.0 IMMATURE GRANULOCYTE % (test code=IG%) % 0.0-5.0 LYMPHOCYTE % (test code=LY%) % 25.0-55.0 MONOCYTE % (test code=MO%) % 0.0-10.0 EOSINOPHIL % (test code=EO%) % 0.0-5.0 BASOPHIL % (test code=BA%) % 0.0-1.0 NEUTROPHIL # (test code=NT#) K/mm3 1.8-7.7 LYMPHOCYTE # (test code=LY#) K/mm3 1.0-5.0 MONOCYTE # (test code=MO#) K/mm3 0-0.8 EOSINOPHIL # (test code=EO#) K/mm3 0.0-0.5 BASOPHIL # (test code=BA#) K/mm3 0.0-0.2 - CT ABD PELVIS [id number] 03:35:00 Name: JAIDEN PERLA [facility] : 1980 Age/S: 37 / M [address] Unit #: [id number] Loc: [place] [address] Phys: Jillian Smith DO Acct: [id number] Dis Date: Status: REG ER PHONE #: [phone] Exam Date: 07/10/2018309 FAX #: [phone] Reason: abdominal pain, r/o pancreatitis EXAMS: CPT CODE: [id number] CT ABD PELVIS W/CONT 24313 EXAM: - CT ABD PELVIS W/CONT HISTORY: Abdominal pain. TECHNIQUE: Axial tomograms through the abdomen and pelvis were obtained after intravenous contrast. Coronal and sagittal reformatted images are provided. This exam was performed according to our departmental dose-optimization program, which includes automated exposure control, adjustment of the mA and/or kV according to patient size and/or use of iterative reconstruction technique. COMPARISON: June 18, 2015. FINDINGS: The visualized lung bases are clear. No pleural effusion. The liver, spleen, pancreas, adrenal glands and kidneys demonstrate no significant abnormalities. The appendix has a normal appearance. The bowel is unremarkable. There is no adenopathy or free fluid. There is no acute osseous abnormality. IMPRESSION: No significant abnormalities demonstrated. at 0335 Reported and signed by: Edil Tripathi MD CC: Jillian Smith DO Technologist:FREDDY MAGALLON CTDI: DLP: Trnscb Date/Time: 07/10/2018 (334) [email or web address] Orig Print D/T: S: 07/10/2018 (0338) CTDI: DLP: PAGE 1 Signed Report BASIC METABOLIC [id number] 02:33:00* Test Item Value Reference Range Comments SODIUM (test code=NA) 141 mmol/L 136-145 POTASSIUM (test code=K) 3.7 mmol/L 3.5-5.1 CHLORIDE (test code=CL) 107.0 mmol/L 98-107 CARBON DIOXIDE (test code=CO2) 30.0 mmol/L 21-32 ANION GAP (test code=GAP) 7.7 10-20 GLUCOSE (test code=GLU) 88 mg/dL 74-106 BLOOD UREA NITROGEN (test code=BUN) 9 mg/dL 7-18 GLOMERULAR FILTRATION RATE (test code=GFR) > 60 mL/min >=60 Estimated GFR by using Modified MDRD formula.Chronic kidney disease is defined as either kidney damageor GFR <60 mL/min/1.73 m2 for >3 months. CREATININE (test code=CREAT) 1.00 mg/dL 0.7-1.3 BUN/CREATININE RATIO (test code=BUN/CREA) 9.2 10-20 CALCIUM (test code=CA) 9.0 mg/dL 8.5-10.1 HEPATIC FUNCTION [id number] 02:33:00* Test Item Value Reference Range Comments TOTAL PROTEIN (test code=PROT) 7.7 gram/dL 6.4-8.2 ALBUMIN (test code=ALB) 4.1 g/dL 3.4-5.0 GLOBULIN (test code=GLOB) 3.6 gram/dL 2.7-4.2 ALBUMIN/GLOBULIN RATIO (test code=A/G) 1.1 0.75-1.50 BILIRUBIN TOTAL (test code=BILT) 0.40 mg/dL 0.0-1.0 BILIRUBIN DIRECT (test code=BILD) 0.12 mg/dL 0.0-0.20 SGOT/AST (test code=AST) 23 IUnit/L 15-37 SGPT/ALT (test code=ALT) 37 IUnit/L 12-78 ALKALINE PHOSPHATASE TOTAL (test code=ALKP) 73 IUnit/L 45-117 Note change in reference range due to change in reagent. [id number] 02:33:00* Test Item Value Reference Range Comments LIPASE (test code=LIP) 103 U/L 73.0-393.0 BASIC METABOLIC [id number] 02:15:00* Test Item Value Reference Range Comments SODIUM (test code=NA) 141 mmol/L 136-145 POTASSIUM (test code=K) 3.7 mmol/L 3.5-5.1 CHLORIDE (test code=CL) 107.0 mmol/L 98-107 CARBON DIOXIDE (test code=CO2) mmol/L 21-32 ANION GAP (test code=GAP) 10-20 GLUCOSE (test code=GLU) mg/dL 74-106 BLOOD UREA NITROGEN (test code=BUN) mg/dL 7-18 GLOMERULAR FILTRATION RATE (test code=GFR) mL/min >=60 CREATININE (test code=CREAT) mg/dL 0.7-1.3 BUN/CREATININE RATIO (test code=BUN/CREA) 10-20 CALCIUM (test code=CA) mg/dL 8.5-10.1 HEPATIC FUNCTION [id number] 02:15:00* Test Item Value Reference Range Comments TOTAL PROTEIN (test code=PROT) gram/dL 6.4-8.2 ALBUMIN (test code=ALB) g/dL 3.4-5.0 GLOBULIN (test code=GLOB) gram/dL 2.7-4.2 ALBUMIN/GLOBULIN RATIO (test code=A/G) 0.75-1.50 BILIRUBIN TOTAL (test code=BILT) mg/dL 0.0-1.0 BILIRUBIN DIRECT (test code=BILD) mg/dL 0.0-0.20 SGOT/AST (test code=AST) IUnit/L 15-37 SGPT/ALT (test code=ALT) IUnit/L 12-78 ALKALINE PHOSPHATASE TOTAL (test code=ALKP) IUnit/L 45-117 [id number] 02:15:00* Test Item Value Reference Range Comments LIPASE (test code=LIP) U/L 73.0-393.0 URINALYSIS [id number] 01:51:00* Test Item Value Reference Range Comments UA COLOR (test code=COLU) LIGHT YELLOW YELLOW UA APPEARANCE (test code=APPU) CLEAR CLEAR UA GLUCOSE DIPSTICK (test code=DGLUU) NEGATIVE mg/dL NEGATIVE UA BILIRUBIN DIPSTICK (test code=BILU) NEGATIVE mg/dL NEGATIVE UA KETONE DIPSTICK (test code=KETU) Negative mg/dL NEGATIVE UA SPECIFIC GRAVITY (test code=SGU) 1.014 1.001-1.035 UA BLOOD DIPSTICK (test code=ALYSSA) Negative NEGATIVE UA PH DIPSTICK (test code=RIC) 6.0 5.0-8.0 UA PROTEIN DIPSTICK (test code=PROU) Negative mg/dL NEGATIVE UA UROBILINIOGEN DIPSTICK (test code=URO) 2.0 (1+) mg/dL NEGATIVE UA NITRITE DIPSTICK (test code=AKIRA) NEGATIVE NEGATIVE UA LEUKOCYTE ESTERASE W REFLEX (test code=LEUUR) NEGATIVE NEGATIVE UA WBC (test code=WBCU) 0-5 #/HPF 0-5 UA EPITHELIAL CELLS (test code=EPIU) FEW per HPF FEW UA MUCUS (test code=MUCU) FEW #/LPF FEW Urine Source? Clean CatchCBC W/O [id number] 01:46:00* Test Item Value Reference Range Comments WHITE BLOOD CELL (test code=WBC) 6.2 K/mm3 4.5-12.5 RED BLOOD CELL (test code=RBC) 4.81 mill/mm3 4.0-5.8 HEMOGLOBIN (test code=HGB) 14.7 gram/dL 13.0-17.5 HEMATOCRIT (test code=HCT) 43.3 % 42.0-52.0 MEAN CELL VOLUME (test code=MCV) 90.0 fL 80-98 MEAN CELL HGB (test code=MCH) 30.6 picogram 27.0-33.0 MEAN CELL HGB CONCETRATION (test code=MCHC) 33.9 gram/dL 33.0-36.0 RED CELL DISTRIBUTION WIDTH (test code=RDW) 13.2 % 11.6-16.2 PLATELET COUNT (test code=PLT) 217 K/mm3 150-450 MEAN PLATELET VOLUME (test code=MPV) 10.3 fL 6.7-11.0 CBC W/O [id number] 01:43:00* Test Item Value Reference Range Comments WHITE BLOOD CELL (test code=WBC) K/mm3 4.5-12.5 RED BLOOD CELL (test code=RBC) mill/mm3 4.0-5.8 HEMOGLOBIN (test code=HGB) 14.7 gram/dL 13.0-17.5 HEMATOCRIT (test code=HCT) 43.3 % 42.0-52.0 MEAN CELL VOLUME (test code=MCV) fL 80-98 MEAN CELL HGB (test code=MCH) picogram 27.0-33.0 MEAN CELL HGB CONCETRATION (test code=MCHC) gram/dL 33.0-36.0 RED CELL DISTRIBUTION WIDTH (test code=RDW) % 11.6-16.2 PLATELET COUNT (test code=PLT) K/mm3 150-450 MEAN PLATELET VOLUME (test code=MPV) fL 6.7-11.0 URINALYSIS [id number] 23:23:00* Test Item Value Reference Range Comments UA COLOR (test code=COLU) YELLOW YELLOW UA APPEARANCE (test code=APPU) CLEAR CLEAR UA GLUCOSE DIPSTICK (test code=DGLUU) NEGATIVE mg/dL NEGATIVE UA BILIRUBIN DIPSTICK (test code=BILU) NEGATIVE mg/dL NEGATIVE UA KETONE DIPSTICK (test code=KETU) Negative mg/dL NEGATIVE UA SPECIFIC GRAVITY (test code=SGU) 1.016 1.001-1.035 UA BLOOD DIPSTICK (test code=ALYSSA) Negative NEGATIVE UA PH DIPSTICK (test code=RIC) 5.0 5.0-8.0 UA PROTEIN DIPSTICK (test code=PROU) Negative mg/dL NEGATIVE UA UROBILINIOGEN DIPSTICK (test code=URO) 4.0 (2+) mg/dL NEGATIVE UA NITRITE DIPSTICK (test code=AKIRA) NEGATIVE NEGATIVE UA LEUKOCYTE ESTERASE W REFLEX (test code=LEUUR) NEGATIVE NEGATIVE UA WBC (test code=WBCU) 0-5 #/HPF 0-5 UA RBC (test code=RBCU) 0-2 #/HPF 0-5 UA EPITHELIAL CELLS (test code=EPIU) FEW per HPF FEW UA MUCUS (test code=MUCU) FEW #/LPF FEW Urine Source? Clean CatchURINALYSIS [id number] 23:19:00* Test Item Value Reference Range Comments UA COLOR (test code=COLU) YELLOW YELLOW UA APPEARANCE (test code=APPU) CLEAR CLEAR UA GLUCOSE DIPSTICK (test code=DGLUU) NEGATIVE mg/dL NEGATIVE UA BILIRUBIN DIPSTICK (test code=BILU) NEGATIVE mg/dL NEGATIVE UA KETONE DIPSTICK (test code=KETU) Negative mg/dL NEGATIVE UA SPECIFIC GRAVITY (test code=SGU) 1.016 1.001-1.035 UA BLOOD DIPSTICK (test code=ALYSSA) Negative NEGATIVE UA PH DIPSTICK (test code=RIC) 5.0 5.0-8.0 UA PROTEIN DIPSTICK (test code=PROU) Negative mg/dL NEGATIVE UA UROBILINIOGEN DIPSTICK (test code=URO) mg/dL 0.0-0.2 UA NITRITE DIPSTICK (test code=AKIRA) NEGATIVE NEGATIVE UA LEUKOCYTE ESTERASE W REFLEX (test code=LEUUR) NEGATIVE NEGATIVE UA WBC (test code=WBCU) per HPF 0-5 Urine Source? Clean CatchBASIC METABOLIC [id number] 22:33:00* Test Item Value Reference Range Comments SODIUM (test code=NA) 140 mmol/L 136-145 POTASSIUM (test code=K) 4.1 mmol/L 3.5-5.1 CHLORIDE (test code=CL) 107.0 mmol/L 98-107 CARBON DIOXIDE (test code=CO2) 28.0 mmol/L 21-32 ANION GAP (test code=GAP) 9.1 10-20 GLUCOSE (test code=GLU) 127 mg/dL 74-106 BLOOD UREA NITROGEN (test code=BUN) 8 mg/dL 7-18 GLOMERULAR FILTRATION RATE (test code=GFR) > 60 mL/min >=60 Estimated GFR by using Modified MDRD formula.Chronic kidney disease is defined as either kidney damageor GFR <60 mL/min/1.73 m2 for >3 months. CREATININE (test code=CREAT) 1.00 mg/dL 0.7-1.3 BUN/CREATININE RATIO (test code=BUN/CREA) 7.9 10-20 CALCIUM (test code=CA) 8.7 mg/dL 8.5-10.1 HEPATIC FUNCTION [id number] 22:33:00* Test Item Value Reference Range Comments TOTAL PROTEIN (test code=PROT) 7.9 gram/dL 6.4-8.2 ALBUMIN (test code=ALB) 4.0 g/dL 3.4-5.0 GLOBULIN (test code=GLOB) 3.9 gram/dL 2.7-4.2 ALBUMIN/GLOBULIN RATIO (test code=A/G) 1.0 0.75-1.50 BILIRUBIN TOTAL (test code=BILT) 0.30 mg/dL 0.0-1.0 BILIRUBIN DIRECT (test code=BILD) 0.07 mg/dL 0.0-0.20 SGOT/AST (test code=AST) 24 IUnit/L 15-37 SGPT/ALT (test code=ALT) 31 IUnit/L 12-78 ALKALINE PHOSPHATASE TOTAL (test code=ALKP) 69 IUnit/L 45-117 Note change in reference range due to change in reagent. [id number] 22:33:00* Test Item Value Reference Range Comments LIPASE (test code=LIP) 173 U/L 73.0-393.0 BASIC METABOLIC [id number] 22:25:00* Test Item Value Reference Range Comments SODIUM (test code=NA) 140 mmol/L 136-145 POTASSIUM (test code=K) 4.1 mmol/L 3.5-5.1 CHLORIDE (test code=CL) 107.0 mmol/L 98-107 CARBON DIOXIDE (test code=CO2) mmol/L 21-32 ANION GAP (test code=GAP) 10-20 GLUCOSE (test code=GLU) mg/dL 74-106 BLOOD UREA NITROGEN (test code=BUN) mg/dL 7-18 GLOMERULAR FILTRATION RATE (test code=GFR) mL/min >=60 CREATININE (test code=CREAT) mg/dL 0.7-1.3 BUN/CREATININE RATIO (test code=BUN/CREA) 10-20 CALCIUM (test code=CA) mg/dL 8.5-10.1 HEPATIC FUNCTION [id number] 22:25:00* Test Item Value Reference Range Comments TOTAL PROTEIN (test code=PROT) gram/dL 6.4-8.2 ALBUMIN (test code=ALB) g/dL 3.4-5.0 GLOBULIN (test code=GLOB) gram/dL 2.7-4.2 ALBUMIN/GLOBULIN RATIO (test code=A/G) 0.75-1.50 BILIRUBIN TOTAL (test code=BILT) mg/dL 0.0-1.0 BILIRUBIN DIRECT (test code=BILD) mg/dL 0.0-0.20 SGOT/AST (test code=AST) IUnit/L 15-37 SGPT/ALT (test code=ALT) IUnit/L 12-78 ALKALINE PHOSPHATASE TOTAL (test code=ALKP) IUnit/L 45-117 [id number] 22:25:00* Test Item Value Reference Range Comments LIPASE (test code=LIP) U/L 73.0-393.0 CBC W/O [id number] 22:08:00* Test Item Value Reference Range Comments WHITE BLOOD CELL (test code=WBC) 4.7 K/mm3 4.5-12.5 RED BLOOD CELL (test code=RBC) 5.12 mill/mm3 4.0-5.8 HEMOGLOBIN (test code=HGB) 15.3 gram/dL 13.0-17.5 HEMATOCRIT (test code=HCT) 45.9 % 42.0-52.0 MEAN CELL VOLUME (test code=MCV) 89.6 fL 80-98 MEAN CELL HGB (test code=MCH) 29.9 picogram 27.0-33.0 MEAN CELL HGB CONCETRATION (test code=MCHC) 33.3 gram/dL 33.0-36.0 RED CELL DISTRIBUTION WIDTH (test code=RDW) 12.9 % 11.6-16.2 PLATELET COUNT (test code=PLT) 233 K/mm3 150-450 MEAN PLATELET VOLUME (test code=MPV) 10.3 fL 6.7-11.0 CBC W/O [id number] 22:07:00* Test Item Value Reference Range Comments WHITE BLOOD CELL (test code=WBC) K/mm3 4.5-12.5 RED BLOOD CELL (test code=RBC) mill/mm3 4.0-5.8 HEMOGLOBIN (test code=HGB) 15.3 gram/dL 13.0-17.5 HEMATOCRIT (test code=HCT) 45.9 % 42.0-52.0 MEAN CELL VOLUME (test code=MCV) fL 80-98 MEAN CELL HGB (test code=MCH) picogram 27.0-33.0 MEAN CELL HGB CONCETRATION (test code=MCHC) gram/dL 33.0-36.0 RED CELL DISTRIBUTION WIDTH (test code=RDW) % 11.6-16.2 PLATELET COUNT (test code=PLT) K/mm3 150-450 MEAN PLATELET VOLUME (test code=MPV) fL 6.7-11.0 - XR FOOT 3 + V [id number] 21:11:00 FAX: Mee Mathis [phone] [place]: B St: [facility] FAX: Renae Ronquillo Name: JAIDEN PERLA [facility] : 1980 Age/S: 38/M [address] Unit #: [id number] Loc: [place] [address]84 Phys: Renae Ronquillo NP Acct: [id number] Dis Date: Status: REG ER PHONE #: [phone] Exam Date: 05/20/20182049 FAX #: [phone] Reason: PAIN S/P FALL EXAMS: CPT CODE: [id number] XR FOOT 3 + [place] 14732 CLINICAL HISTORY: PAIN S/P FALL TECHNIQUE: AP, obl ique, and lateral views of the left foot COMPARISON: None FINDINGS: There is a nondisplaced incomplete fracture involv ing the base of the fifth metatarsal. This fracture does not extend to the articular surface with the cuboid or the fourth metatarsal. The remaining bones are unremarkable and the joints are appropriately aligned. IMPRESSION: Nondisplaced incomplete avulsion f racture involving the base of the left foot fifth metatarsal. * * at 2110 Reported and signed by: Davian Erickson MD CC: Mee Glover MD; Renae Ronquillo NP Technologist: Yaneth Fabian Trnscrd Date/Time/By: 05/20/2018 (2110) : By: [id number] Orig Print D/T: S: 05/20/2018 (2113) PAGE 1 Signed Report [place] [address] Patient Name: JAIDEN PERLA JR MR #: [id number] : 1980 Age/Sex: 36/M Req #: [id number] Adm Physician: Ordered by: LOUISE BOTELLO MD Report #: [id number] Location: US Room/Bed: Procedure: [id number] US/US ABDOMEN COMPLETE Ex am Date: Exam Time: REPORT STATUS: Signed EXAM: Complete Abdominal Ultrasound INDICATION: COMPARISON: CT da [facility] 03/29/2017 TECHNIQUE: Transverse and longitudinal images of the upper abdo men were obtained. FINDINGS: Liver: Size: 16.4 cm in the r ight midclavicular line, normal Appearance: Normal echogenicity, smooth c ontour Mass: No focal masses Spleen: Size: 11.9 cm in length , normal Echogenicity: Normal Mass: No focal masses Gallbla dder: Stones/Sludge: Shadowing gallstones Wall: 0.3 cm Appe arance: No pericholecystic fluid or hydrops. Gallbladder wall echogenic foci w ith ringdown artifact. Sonographic Manuel's Sign: Negative Bile Ducts: Intrahepatic Ducts: No dilatation Extrahepatic Ducts: Common bile du ct measures 0.4 cm, no dilatation Pancreas: Visualized pancreas is u nremarkable. Right Kidney: Size: 12.4 cm Echogenicity: Norm al Parenchymal thickness: Normal Collecting System: No hydroneph rosis Stone: None Cyst/Mass: None Left Kidney: Size: 11.2 cm Echogenicity: Normal Parenchymal thicknes s: Normal Collecting System: No hydronephrosis Stone: None Cyst/Mass: None Vessels: Aorta: Visualized portions are normal Inferior Vena Cava: Visualized portions are normal Main Portal Vein: 1.3 cm, normal size with hepatopetal flow. Free Fluid: No ascites or pleural effusion IMPRESSION: Cholelithiasis without evidence of cholecy stitis. Gallbladder wall adenomyomatosis. Signed by: Dr. Lianne Carter MD on 05/22/2017 3:16 PM Dictated By: BUBBA CARTER MD Elec tronically Signed By: BUBBA CARTER MD on 05/22/17 1516 Transcribed By: TRICIA on 05/22/17 1516 COPY TO: LOUISE BOTELLO MD CT ABDOMEN/PELVIS W [facility] [address] [place] [address] Patient Name: JAIDEN PERLA JR MR #: [id number] DO B: 1980 Age/Sex: 36/M Req #: [id number] Adm Physici an: Ordered by: GIBRAN ETIENNE MD Report #: [id number] Location: [facility]/Bed: Procedure: [id number] CT/CT ABDOMEN/PELVIS W E xam Date: 03/29/17 Exam Time: 1820 REPORT STATU S: Signed PROCEDURE: CT ABDOMEN AND PELVIS WITH CONTRAST TECHNIQUE: The abdomen and pelvis were scanned utilizing a multidetector helical scanner from the diaphragm to the lesser trochanter after the IV administration of 1 00 cc of Isovue 370 and the oral administration of water. Coronal and sagitt al multiplanar reformations were obtained. COMPARISON: None. INDICAT IONS: STOMACH PAIN FOR 2 WEEKS FINDINGS: LOWER THORAX: Mild bilateral lower lobe dependent atelectasis, left greater than right. HEPATOBILIARY: N o focal hepatic lesions. No biliary ductal dilatation. Gallbladder is unrema rkable. SPLEEN: Mild splenomegaly, measuring 13.5 cm in AP diameter. PANCREA S: No focal masses or ductal dilatation. ADRENALS: No adrenal nodules. KIDNE YS/URETERS: No hydronephrosis, stones, or solid mass lesions. PELVIC ORGANS/BL ADDER: Bladder is unremarkable. No focal lesions or wall thickening. Prostate is unremarkable. PERITONEUM / RETROPERITONEUM: No free air or fluid. LYMPH NODES: No lymphadenopathy. VESSELS: Unremarkable. GI TRACT: Mild dilation of a few loops of proximal jejunum, which are fluid-filled, with maximal measur ement of 3.5 cm. No wall thickening, or abnormal enhancement. There is no tra nsition point, with progressive normal caliber of bowel before and after thes e segments. No focal intraluminal lesions. The rest of the bowel shows no dil ation. No evidence of obstruction or wall thickening. Appendix is identified, and normal in caliber. No pericolonic inflammatory changes. Stomach is gr ossly unremarkable. BONES AND SOFT TISSUES: No acute bony abnormalities. Soft tissues are unremarkable. IMPRESSION: 1. mild dilation of a few l oops of proximal jejunum, which are nonspecific. No definite transition point , with smooth transition to normal bowel proximally and distally. No wall thi ckening, or abnormal enhancement. Mild enteritis may be a consideration in th e setting of abdominal pain. The rest of the bowel including the stomach, is unremarkable. 2. Mild splenomegaly. Marvin Burnett M.D. Dictated by: Marvin Burnett M.D. on 03/29/2017 at 19:15 [facility] approved by: Marvin Burnett M.D. on 03/29/2017 at 19:15 Dictated By: MARVIN BURNETT MD 14 Transcribed By: JANE on 03/29/171914 COPY TO: GIBRAN ETIENNE MD
--- OUTSIDE RECORDS SUMMARY | 2019-01-21 08:13 | XMS REPORT | Continuity of Care Document ---
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 Name Role Phone [employer] Unavailable Unavailable Problems Problem Status Onset Date Classification Date Reported Comments Source M47.812 - SPONDYLOSIS W/O MYELOPATHY OR Active 06/24/2015 [facility] [place] Back pain Active Problem 11/06/2018 Liban Flowers Rash Active Problem 11/06/2018 Liban Navarroer Neck pain Active Problem 11/06/2018 Liban Flowers Joint pain Active Diagnosis 11/06/2018 Liban Flowers Medications Medication Details Route Status Patient Instructions Ordering Provider Order Date Source Diclofenac Potassium 1 tablet Orally Active 50 MG Orally Twice a day Kelle 03/27/2018 Liban Flowers Linzess 1 capsule Orally Active 145 MCG Orally Once a day Kelle Liban Flowers HydrOXYzine HCl 1 tablet as needed Orally Active 25 MG Orally every 8 hrs Kelle Liban Flowers Allergies, Adverse Reactions, Alerts Substance Category Reaction Severity Reaction type Status Date Reported Comments Source Cortisone Adverse Reaction Info Not Available Adverse Reaction Active 10/29/2018 Liban Navarroer Reglan Adverse Reaction stomach upset Adverse Reaction Active 10/29/2018 Liban Navarroer Morphine Sulfate Adverse Reaction Info Not Available Adverse Reaction Active 10/29/2018 Liban Navarroer Dilaudid Adverse Reaction Info Not Available Adverse Reaction Active 10/29/2018 Liban Navarroer OTC NSAIDs Adverse Reaction Info Not Available Adverse Reaction Active 10/29/2018 Liban Flowers Immunizations No Data Provided for This Section Results No Data Provided for This Section Pathology Reports No Data Provided for This Section Diagnostic Reports Report Value Date Source Spine lumbar wo contrast MRI EXAM: MRI LUMBAR SPINE WITHOUT CONTRAST DATE: 07/21/2015 3:31 PM CDT . CLINICAL INDICATION: Low back pain, fall . TECHNIQUE: Multiplanar, multisequence MRI lumbar spine without IV contrast COMPARISON: Unavailable FINDINGS: The lumbar vertebral bodies have normal height height and shape. There is levoconvex curvature with apex at L3.. There is no worrisome marrow signal abnormality. The conus terminates normally at L1-L2. The paravertebral soft tissues are within normal limits. Disc spaces, spinal canal, and neural foramina: Short pedicles leading to baseline narrowing of the lumbar central canal T12-L1. Intervertebral disc height and signal are maintained. Posterior elements are normal. There is no stenosis. L1-L2. Intervertebral disc is minimally dehydrated without height loss or annular bulging.. Posterior elements are normal. There is no stenosis. L2-L3. Intervertebral disc height and signal are maintained. Posterior elements are normal. There is no stenosis. L3-L4. Intervertebral disc height and signal are maintained. Posterior elements are normal. There is no stenosis. L4-L5. Intervertebral disc height and signal are maintained. Posterior elements are normal. There is no stenosis. L5-S1. Intervertebral disc height and signal are maintained. Posterior elements are normal. There is no stenosis. IMPRESSION: 1. No lumbar spine stenosis, impingement, or traumatic sequela identified 2. Scoliosis with very mild disc degeneration and no associated vertebral subluxation 07/21/2015 [facility] Spine Thoracic wo contrast MRI EXAM: SPINE THORACIC WO CONTRAST MRI DATE:- 07/21/2015 3:32 PM CDT . CLINICAL INDICATION: Upper thoracic spine pain, tender to touch, fall. TECHNIQUE: Multiplanar, multisequence MRI thoracic spine without IV contrast COMPARISON: Unavailable FINDINGS: The thoracic vertebral bodies have hydrated state. There is gentle dextroconvex curvature of the upper thoracic spine.. There is no worrisome marrow signal abnormality. The thoracic cord signal is normal and homogenous. Paravertebral soft tissue signals are normal. Physically there is no soft tissue or ligamentous edema. There is no sign of ligamentous disruption. There is a stone within the gallbladder. INTERVERTEBRAL DISC SPACES, SPINAL CANAL, AND NEURAL FORAMINA: There is a small diffuse disc bulge at T11-T12 indenting thecal sac without mass effect on the cord. The foramina are patent. The thoracic intervertebral disc heights and signals are otherwise maintained. The thoracic spinal canal is widely patent. The thoracic neural foramina are patent. IMPRESSION: 1. No traumatic abnormality of the thoracic spine 2. Mild T11-T12 disc degeneration without neural impingement 3. Scoliosis 07/21/2015 [facility] Spine cervical wo contrast MRI MRI CERVICAL SPINE WITHOUT CONTRAST TECHNIQUE: Multiplanar multisequence imaging of the cervical spine was performed without administration of intravenous gadolinium. COMPARISON: No prior exam. FINDINGS: The exam is limited by motion. No cervical spine marrow edema is identified. No paraspinal soft tissue edema is present. C2-C3: Unremarkable. C3-C4: Approximately 1 mm grade 1 anterolisthesis is present. The facet joints are well aligned. No central canal or foraminal stenosis. C4-C5: Unremarkable. C5-C6: Unremarkable. C6-C7: Unremarkable. C7-T1: Unremarkable. The cervical cord signal is unremarkable without MRI evidence of myelomalacia. IMPRESSION: 1. Exam limited by patient motion. 2. C3-C4 minimal grade 1 anterolisthesis and may be physiologic. Normal alignment of the facet joints. 3. No disc herniation or central canal stenosis. Normal cervical cord signal. 07/21/2015 ANGELLA Roy Consultation Notes No Data Provided for This Section Discharge Summaries No Data Provided for This Section History and Physicals No Data Provided for This Section Vital Signs Vital Sign Value Date Comments Source Weight 201.1 10/29/2018 Liban Flowers Height 68.5 10/29/2018 Liban Flowers Temperature Oral (F) 97.2 F 10/29/2018 Liban Flowers Heart Rate 70 10/29/2018 Liban Flowers Diastolic (mm Hg) 82 10/29/2018 Liban Flowers Systolic (mm Hg) 112 10/29/2018 Liban Flowers Weight 193 04/30/2018 Liban Flowers Height 69 04/30/2018 Liban Flowers Temperature Oral (F) 96.9 F 04/30/2018 Liban Flowers Heart Rate 72 04/30/2018 Liban Flowers Diastolic (mm Hg) 72 04/30/2018 Liban Flowers Systolic (mm Hg) 110 04/30/2018 Liban Flowers Encounters Location Location Details Encounter Type Encounter Number Reason For Visit Attending Provider ADM Date DC Date Status Source [facility] [id number] Mary Chavis 07/21/2015 07/22/2015 [facility] Roy Procedures No Data Provided for This Section Assessment and Plan No Data Provided for This Section Plan of Care No Data Provided for This Section Social History Social History Date Source No data available for this section 07/22/2015 ANGELLA Roy Family History No Data Provided for This Section Advance Directives No Data Provided for This Section Functional Status No Data Provided for This Section
--- OUTSIDE RECORDS SUMMARY | 2019-01-21 08:13 | XMS REPORT ---
Author Author Kathi Nina Organization [employer] Address Unknown Phone Unavailable Care Team Providers Care Pharmacy Sales Representative Name Role Phone Kathi Nina CP Unavailable Allergies, Adverse Reactions, Alerts Substance Reaction Event Type Cortisone Info Not Available Drug Allergy Reglan stomach upset Drug Allergy Morphine Sulfate Info Not Available Drug Allergy Dilaudid Info Not Available Drug Allergy OTC NSAIDs Info Not Available Non Drug Allergy Problems Problem Type Condition Code Onset Dates Condition Status Problem Back pain M54.9 Active Problem Rash R21 Active Problem Neck pain M54.2 Active Assessment Joint pain M25.50 Active Problem Joint pain M25.50 Active Medications Medication Code System Code Instructions Start Date End Date Status Dosage Linzess [facility] [id number] 145 MCG Orally Once a day Active 1 capsule HydrOXYzine HCl [facility] 71213923653 25 MG Orally every 8 hrs Active 1 tablet as needed Vital Signs Date/Time: October 29, 2018 BMI 30.13 Index Weight 201.1 lbs Height 68.5 in Temperature 97.2 F Cardiac Monitoring Heart Rate 70 /min Blood Pressure Diastolic 82 mm Hg Blood Pressure Systolic 112 mm Hg Results No Known Results Summary Purpose [employer] Submission
--- OUTSIDE RECORDS SUMMARY | 2019-01-21 08:13 | XMS REPORT | Summary of Care ---
Author Author [facility] [place] Organization [facility] [place] Address Unknown Phone Unavailable Encounter HQ Encntr_alias(FIN) [id number] Date(s): 07/21/15 - 07/21/15 [facility] [place] [address] [place] [address] [phone] Discharge Disposition: Home Attending Physician: Mary Chavis MD Vital Signs No data available for this section Problem List No data available for this section Allergies, Adverse Reactions, Alerts No data available for this section Medications No data available for this section Results No data available for this section Immunizations No data available for this section Procedures No data available for this section Social History No data available for this section Assessment and Plan No data available for this section
[2019-01-21] MEDS ORDERED: METHYLPREDNISOLONE SOD SUCC 125 MG/2ML VIAL IV STA (08:14)
[2019-01-21] MEDS ORDERED: SODIUM CHLORIDE 0.9% 1000ML 1,000 ML IV STA (08:14)
[2019-01-21] MEDS ORDERED: LEVALBUTEROL HCL SOLN NEBU 0.63 MG/3 ML NEB INH ONE (08:15)
[2019-01-21] MEDS ORDERED: IPRATROPIUM BROMIDE 0.02% 2.5 ML NEB NEB ONE (08:15)
[2019-01-21 08:53] LABS: BASOPHILS % 0.3 % (0.0-1.0); EOSINOPHILS % 0.3 % (0.0-6.0); HEMATOCRIT 48.3 % (38.2-49.6); HEMOGLOBIN 17.3 g/dL (14.0-18.0); LYMPHOCYTES # (AUTO) 2.2 (1.0-3.2); LYMPHOCYTES % 20.7 % (18.0-39.1); MEAN CORPUSCULAR HEMOGLOBIN 31.5 pg (28-32); MEAN CORPUSCULAR HGB CONC 35.8 g/dL (31-35); MEAN CORPUSCULAR VOLUME 87.8 fL (81-99); MONOCYTES # (AUTO) 0.8 (0.2-0.8); MONOCYTES % 7.5 % (4.4-11.3); NEUTROPHILS # (AUTO) 7.5 (2.1-6.9); NEUTROPHILS % 70.8 % (38.7-80.0); PLATELET COUNT 227 x10e3/uL (140-360); RED CELL DISTRIBUTION WIDTH 13.7 % (11.7-14.4)
[2019-01-21 09:32] LABS: ALANINE AMINOTRANSFERASE 21 IU/L (0-55); ALBUMIN 4.4 g/dL (3.5-5.0); ALBUMIN/GLOBULIN RATIO 1.2 (0.8-2.0); ALKALINE PHOSPHATASE 63 IU/L (40-150); ANION GAP 16.7 mmol/L (8-16); BLOOD UREA NITROGEN 15 mg/dL (7-26); BUN/CREATININE RATIO 14 (6-25); CALCIUM 10.7 mg/dL (8.4-10.2); CARBON DIOXIDE 21 mmol/L (22-29); CHLORIDE 102 mmol/L (98-107); CREATININE, SERUM 1.08 mg/dL (0.72-1.25); EST GLOMERULAR FILTRATION RATE > 60 ML/MIN (60-); GLUCOSE 100 mg/dL (74-118); MAGNESIUM 1.9 MG/DL (1.3-2.1); POTASSIUM 3.7 mmol/L (3.5-5.1); SODIUM 136 mmol/L (136-145)
--- NOTE | 2019-01-21 09:38 | Diagnostic Imaging Report ---
EXAMINATION: CHEST 2 VIEWS INDICATION: Cough, shortness of breath COMPARISON: None FINDINGS: LINES/TUBES:None LUNGS:The lungs are well-inflated. No focal consolidation or pulmonary edema. PLEURA:No pleural effusion or pneumothorax. MEDIASTINUM:The cardiomediastinal silhouette appears normal in size and shape. BONES/SOFT TISSUES:No acute osseous injury. ABDOMEN:No free air under the diaphragm. IMPRESSION: No focal pneumonia or pulmonary edema. Signed by: Dalton Nichols MD on 01/21/2019 9:35 AM
--- NOTE | 2019-01-21 10:27 | NUR ---
CBC STILL PENDING, NURSE CALLING LAB
[2019-01-21 11:39] VITALS: BP 126/76
[2019-01-21 11:47] LABS: AMPHETAMINES SCREEN,URINE N (NEGATIVE); PHENCYCLIDINE SCREEN,URINE N (NEGATIVE)
[2019-01-21 11:48] LABS: BENZODIAZEPINES SCREEN,URINE N (NEGATIVE)
== END 2019-01-21 11:40 | disposition home or self-care (01) ==
LOC: ER 08:10
DX: R06.00 Dyspnea, unspecified (principal); R05 Cough; J45.31 Mild persistent asthma with (acute) exacerbation; J20.9 Acute bronchitis, unspecified
CPT/HCPCS: 36415; 71046; 80053; 80307; 83518; 83735; 85025; 87070; 94640; 99284; J2930; J7030

== ENCOUNTER 2019-01-23 00:46 | Emergency (ER) | payer MEDICARE ==
[~2019-01-23] VITALS: Ht 172.7 cm; Wt 88.9 kg
[2019-01-23 02:35] LABS: ALANINE AMINOTRANSFERASE 22 IU/L (0-55); ALBUMIN/GLOBULIN RATIO 1.1 (0.8-2.0); ALKALINE PHOSPHATASE 59 IU/L (40-150); ANION GAP 14.5 mmol/L (8-16); BLOOD UREA NITROGEN 16 mg/dL (7-26); BUN/CREATININE RATIO 13 (6-25); CARBON DIOXIDE 21 mmol/L (22-29); CHLORIDE 106 mmol/L (98-107); CREATININE, SERUM 1.24 mg/dL (0.72-1.25); EST GLOMERULAR FILTRATION RATE > 60 ML/MIN (60-); GLUCOSE 115 mg/dL (74-118); POTASSIUM 3.5 mmol/L (3.5-5.1); SODIUM 138 mmol/L (136-145)
--- NOTE | 2019-01-23 03:45 | Diagnostic Imaging Report ---
History: Sore throat, cough and congestion. Comparison studies: None Technique: Axial, coronal and sagittal images from the skull base to the thoracic inlet. Coronal and sagittal images reconstructed from the axial data. Dose modulation, iterative reconstruction, and/or weight based adjustment of the mA/kV was utilized to reduce the radiation dose to as low as reasonably achievable. Intravenous contrast: 100 cc of Isovue 300. Findings: Soft tissues: No abnormalities. Airway is patent. Masses: None. Lymph nodes: No radiographically significant adenopathy. Vessels: Arteries and veins are patent. Glands (thyroid, parotid and submandibular): Normal in size and symmetric. No masses. Orbits: No abnormalities. Paranasal sinuses: Clear. Temporal bones: No abnormalities. Skull base and facial bones: Intact. Cervical spine: No significant abnormality. IMPRESSION: No acute abnormality. Signed by: Dr. Mariaelena Barber M.D. on 01/23/2019 3:41 AM
[2019-01-23] MEDS ORDERED: IOPAMIDOL 370 MG/ML 200 ML INFUS..BTL INJ ONE (04:05)
[2019-01-23] MEDS ORDERED: SODIUM CHLORIDE 0.9% 50ML 50 ML ONE (04:05)
== END 2019-01-23 04:15 | disposition home or self-care (01) ==
LOC: ER 00:46
DX: J04.0 Acute laryngitis (principal); R05 Cough; F17.210 Nicotine dependence, cigarettes, uncomplicated
CPT/HCPCS: 36415; 70491; 80053; 99283; Q9967

== ENCOUNTER 2019-03-15 22:42 | Emergency (ER) | payer MEDICARE ==
[~2019-03-15] VITALS: Ht 172.7 cm; Wt 88.9 kg
[2019-03-15] MEDS ORDERED: ALBUTEROL/IPRATROPIUM 3 ML NEB NEB ONE (23:15)
[2019-03-16 03:58] VITALS: BP 147/63
== END 2019-03-16 02:30 | disposition home or self-care (01) ==
LOC: ER 22:42
DX: R06.00 Dyspnea, unspecified (principal); J20.9 Acute bronchitis, unspecified; R19.7 Diarrhea, unspecified
CPT/HCPCS: 94640; 99283